=== PATIENT | female | born 1940 | race Caucasian/White ===

== ENCOUNTER 2023-03-23 11:35 | Emergency (ER) | payer MEDICARE ==
[~2023-03-23] VITALS: Ht 157.5 cm; Wt 83.2 kg
[2023-03-23 12:48] LABS: BILIRUBIN,URINE NEGATIVE (Neg); CLARITY,URINE CLEAR (Clear); COLOR,URINE YELLOW (Yellow); GLUCOSE, URINE NEGATIVE (Neg); KETONES,URINE NEGATIVE (Neg); LEUKOCYTE ESTERASE ,URINE NEGATIVE (Neg); OCCULT BLOOD,URINE NEGATIVE (Neg); PROTEIN,URINE NEGATIVE (Neg); UROBILINOGEN,URINE 0.2 E.U/dL (0.2-1.0)
[2023-03-23 12:51] LABS: NITRITES, URINE NEGATIVE (Neg)
[2023-03-23 12:53] LABS: UA COLLECTION TYPE CLN CATCH MIDSTREAM
--- NOTE | 2023-03-23 13:42 | NUR ---
Pt here for arm pain d/t injury while moving furniture about two weeks ago. Systolic pressure over 200. aware.
[2023-03-23 13:52] VITALS: BP 212/111; PULSE 73; RESP 16; O2SAT 97
[2023-03-23] MEDS ORDERED: ketorolac trometh. 30mg/ml inj. IV ONE (14:20)
[2023-03-23] MEDS ORDERED: ketorolac tromethamine 15mg/ml inj. IV ONE (14:25)
[2023-03-23] MEDS ORDERED: LIDOcaine 5% patch TP STA (15:48)
[2023-03-23 16:21] VITALS: TEMP 97.5
== END 2023-03-23 16:52 | disposition home or self-care (01) ==
LOC: ER 11:36
DX: M25.511 Pain in right shoulder (principal); M54.59 Other low back pain; I10 Essential (primary) hypertension; Z88.0 Allergy status to penicillin; Z79.899 Other long term (current) drug therapy
CPT/HCPCS: 71045; 72125; 73030; 81003; 96374; 99285; J1885